=== PATIENT | female | born 1945 | race Caucasian/White ===

== ENCOUNTER 2020-11-11 18:51 | IRF | payer MEDICARE, SELFPAY ==
[2020-11-11 17:40] VITALS: BMI 25.3
[2020-11-11 18:29] VITALS: BP 179/55; PULSE 75; RESP 20; TEMP 36.3; O2SAT 100
[2020-11-11 20:38] LABS: Glucose Point of Care 132 mg/dl (65-105)
--- NOTE | 2020-11-11 21:38 | ADMGEN ---
This patient, Hodan Marroquin, was admitted to [facility] Room 223-02. Patient/family oriented to hospital policies and general routines including ID bracelet, bed and alarms, visiting hours, pain management, procedures, bathroom and other care routines, personal items, smoking policy, room service/diet, and visiting hours. Information on how to activate the Rapid Response Team has been discussed. Patient/Family are encouraged to report perceived risks to care and to ask questions if they do not understand what they are told or what they should do.
[2020-11-11] MEDS: PREGABALIN (*CRX) 75 MG CAPSULE PO (21:47)
[2020-11-11] MEDS: CYCLOBENZAPRINE HCL 5 MG TABLET PO (21:47)
[2020-11-11] MEDS: busPIRone HCL 10 MG TABLET PO (21:47)
[2020-11-11] MEDS: dilTIAZem HCL 30 MG TABLET PO (21:47)
[2020-11-11] MEDS: DICYCLOMINE HCL 10 MG CAPSULE PO (21:47)
[2020-11-11] MEDS: GABAPENTIN 300 MG CAPSULE PO (21:47)
[2020-11-11] MEDS: DONEPEZIL HCL 10 MG TABLET PO (21:47)
[2020-11-11 22:00] VITALS: BP 168/44; PULSE 79; RESP 16; TEMP 36.6; O2SAT 98
[2020-11-11] MEDS: TOPIRAMATE 25 MG TABLET 50 MG PO (22:16)
[2020-11-11] MEDS: ACETAMINOPHEN 500 MG TABLET 1000 MG PO (22:34)
[2020-11-12] MEDS: oxyCODONE HCL (*CRX) 5 MG TAB IR PO ×2 (02:30→09:16)
[2020-11-12] MEDS: busPIRone HCL 10 MG TABLET PO ×3 (05:20→21:08)
[2020-11-12] MEDS: dilTIAZem HCL 30 MG TABLET PO ×3 (05:20→21:08)
[2020-11-12] MEDS: DICYCLOMINE HCL 10 MG CAPSULE PO ×4 (05:30→21:08)
[2020-11-12 05:50] LABS: Basophils Percent Auto 0.5 % (0.2-1.2); Eosinophils Absolute Auto 0.4 K/mm3 (0-0.3); Eosinophils Percent Auto 5.5 % (0-4.4); Immature Granulocyte Absolute 0.03 K/mm3 (0.00-0.031); Immature Granulocyte Percent A 0.5 % (0-0.5); Lymphocytes Absolute Auto 2.84 K/mm3 (0.9-3.2); Lymphocytes Percent Auto 43.4 % (18.3-44.2); Mean Corpuscular HGB Conc 32.4 g/dl (32-36); Mean Corpuscular Hemoglobin 32.4 pg (26-34); Mean Platelet Volume 10.4 fl (7.4-10.4); Monocytes Absolute Auto 0.6 K/mm3 (0.1-0.6); Monocytes Percent Auto 9.3 % (2.6-8.5); Neutrophils Absolute Auto 2.7 K/mm3 (1.3-6.7); Neutrophils Percent Auto 40.8 % (45.5-73.1); Platelet Count Result 193 k/mm3 (150-375); Red Cell Distribution Width 13.6 % (11.5-14.5); White Blood Count 6.6 K/mm3 (4.5-10.0)
[2020-11-12 05:54] LABS: Alanine Aminotransferase 42 U/L (4-35); Alkaline Phosphatase 146 U/L (38-126); Anion Gap 9 mmol/L (8-16); Aspartate Amino Transferase 31 U/L (14-36); Bilirubin,Total 0.4 mg/dL (0.2-1.3); Blood Urea Nitrogen 35 mg/dL (7-17); Calcium 9.4 mg/dL (8.4-10.2); Carbon Dioxide 22 mmol/L (22-30); Chloride 109 mmol/L (98-107); Estimated CRCL calculation 35 ml/min; Estimated Glomerular Filt Rate 44; Glucose 120 mg/dL (65-105); Potassium 3.9 mmol/L (3.4-5.0); Sodium 140 mmol/L (137-145)
[2020-11-12 06:00] VITALS: BP 166/50; PULSE 79; RESP 18; TEMP 36.6; O2SAT 93
[2020-11-12 06:23] LABS: Glucose Point of Care 141 mg/dl (65-105)
[2020-11-12] MEDS: ASCORBIC ACID 500 MG TABLET PO (09:14)
[2020-11-12] MEDS: ASPIRIN 81 MG CHEWABLE TABLET PO (09:14)
[2020-11-12] MEDS: MEMANTINE HCL XR 28 MG CAP PO (09:14)
[2020-11-12] MEDS: THERAPEUTIC MULTIVITAMINS/MINERALS TAB (*BKC) 1 TABLET PO (09:14)
[2020-11-12] MEDS: ACETAMINOPHEN 500 MG TABLET 1000 MG PO ×3 (09:14→21:11)
[2020-11-12] MEDS: FERROUS SULFATE DRIED 142 MG TABCR PO (09:14)
[2020-11-12] MEDS: FUROSEMIDE 20 MG TABLET PO (09:14)
[2020-11-12] MEDS: PANTOPRAZOLE 40 MG TABLET PO (09:15)
[2020-11-12] MEDS: SERTRALINE HCL 50 MG TABLET 100 MG PO (09:15)
[2020-11-12] MEDS: SENNA/DOCUSATE SODIUM TABLET 1 TAB PO (09:15)
[2020-11-12] MEDS: ATORVASTATIN 40 MG TABLET 80 MG PO (09:15)
[2020-11-12] MEDS: APIXABAN 5 MG TABLET PO ×2 (09:15→16:59)
[2020-11-12] MEDS: TOPIRAMATE 25 MG TABLET 50 MG PO ×2 (09:16→21:08)
[2020-11-12] MEDS: PREGABALIN (*CRX) 75 MG CAPSULE PO ×2 (09:16→21:13)
--- NOTE | 2020-11-12 10:21 | WPDREHABHP ---
H&P: HPI History of Present Illness Date/Time: 11/12/20 10:21 Chief Complaint: HISTORY OF PRESENT ILLNESS: The patient's primary rehab impairment category is 0 9 orthopedic other The etiologic diagnosis is left-sided rib fractures 6 through 9 I saw this patient [id number] on 11/12/2020 The patient is a 75-year-old female with past medical history of anxiety, bilateral carotid artery stenosis, Alzheimer's disease, CHF, COPD, CAD, lumbar degenerative disc disease, diastolic dysfunction, hypertension, hyperlipidemia, essential tremors, gastric ulcer, GERD, kidney stones, osteoarthritis, peptic ulcerations, peripheral neuropathy, seizure disorder, sick sinus syndrome, CVA, tension headaches, history of DVT who suffered a mechanical fall. Patient was seen in a local hospital and then transferred to [facility] due to her multiple comorbidities. Patient was in ICU. Workup: Left shoulder x-ray revealed a small calcific density projecting above there acromion on the oblique view of the shoulder. Probably due to past injury. CT of the head and spine showed no acute intracranial abnormality. No evidence of acute fracture of the cervical spine. Chest x-ray revealed hazy opacification of the left lung base may relate to atelectasis or small layering left pleural effusion. Bilateral lower extremity Dopplers were negative. Patient was discovered to have a left rib fractures 6 through 9. Hospital course patient required epidural on 11/06/2020 and discontinued on 11/10/2020. Patient resumed her gabapentin and Lyrica which were home meds. Patient is on Flexeril and acetaminophen. Patient was prophylaxed on heparin for DVT prophylaxis. Her Eliquis was initially held until discharge. Patient will not require DVT prophylaxis since Eliquis will be restarting. Therapy was initiated at the acute care facility and the patient transferred to us from [facility] on 11/11/2025 FALLS OR SURGERIES: patient reports 2 or more falls in the past year with injury. Patient has sustained a left rib fracture during her most recent fall. Patient has had no major surgery last 100 days PRIOR LEVEL OF FUNCTION: Eating was [INDEPENDENT] Oral Care was [INDEPENDENT] Toileting Hygiene was [INDEPENDENT] Shower/Bathing was [INDEPENDENT] Upper Body Dressing was [INDEPENDENT] Lower Body Dressing was [INDEPENDENT] Donning/[place] Footwear was [INDEPENDENT] Rolling Left and Right was [INDEPENDENT] Sit to Lying was [INDEPENDENT] Lying to Sitting was [INDEPENDENT] Sit to Stand was [INDEPENDENT] Bed to Chair Transfers was [INDEPENDENT] Toilet Transfers was [INDEPENDENT] Walking was [INDEPENDENT] [>500 feet] with [NO DEVICE] Wheelchair Mobility was [NOT APPLICABLE PRIOR TO ADMISSION] Stairs were [INDEPENDENT] CURRENT LEVEL OF FUNCTION: Eating was [SET UP ONLY] Oral Care was [ partial to mod assist Toileting Hygiene was partial to mod assist Shower/Bathing was partial to mod assist Upper Body Dressing was partial to mod assist Lower Body Dressing was partial to mod assist Donning/[place] Footwear was partial to mod assist Rolling Left and Right was partial to mod assist Sit to Lying was partial to mod assist Lying to Sitting was partial to mod assist Sit to Stand was partial to mod assist Bed to Chair Transfers were partial to mod assist Toilet Transfers were partial to mod assist Walking was 15 ft with a roller walker and partial to mod assist Wheelchair Mobility was not tested Stairs were not tested GOALS: Our therapists will evaluate the patient and establish the goals. However, upon pre-admission screening, the expected goals were to be [INDEPENDENT] with self-care, [INDEPENDENT] with transfers, and [INDEPENDENT] with functional mobility so that the patient can return home. ESTIMATED LENGTH OF STAY: 7-10 days] POTENTIAL BARRIERS TO DISCHARGE: [Family needs training.] [Severity of condition.] [ ACTIVE CO-MORBIDITIES PRESENT
[2020-11-12 14:00] VITALS: BP 143/51; PULSE 89; RESP 18; TEMP 36.4; O2SAT 99
[2020-11-12 20:00] VITALS: PULSE 87; RESP 18; O2SAT 95
[2020-11-12] MEDS: GABAPENTIN 300 MG CAPSULE PO (21:08)
[2020-11-12] MEDS: FAMOTIDINE 10 MG TABLET PO (21:08)
[2020-11-12] MEDS: DONEPEZIL HCL 10 MG TABLET PO (21:15)
[2020-11-12] MEDS: CYCLOBENZAPRINE HCL 5 MG TABLET PO (21:16)
[2020-11-12 21:58] VITALS: BP 172/54; PULSE 87; RESP 18; TEMP 36.4; O2SAT 95
[2020-11-13] MEDS: oxyCODONE HCL (*CRX) 5 MG TAB IR PO (02:04)
[2020-11-13] MEDS: ALPRAZolam (*CRX) 0.25 MG TABLET PO (03:13)
[2020-11-13] MEDS: busPIRone HCL 10 MG TABLET PO ×3 (05:07→21:26)
[2020-11-13] MEDS: dilTIAZem HCL 30 MG TABLET PO ×3 (05:07→21:26)
[2020-11-13 06:00] VITALS: BP 176/64; PULSE 88; RESP 18; TEMP 36.1; O2SAT 93
[2020-11-13] MEDS: DICYCLOMINE HCL 10 MG CAPSULE PO ×4 (06:24→20:34)
[2020-11-13 06:27] LABS: Glucose Point of Care 153 mg/dl (65-105)
--- NOTE | 2020-11-13 08:25 | WPDNEURORHBP ---
Subjective Date/time seen: 11/13/20 08:25 Interval history: The etiologic diagnosis is left-sided rib fractures 6 through 9 The patient is a 75-year-old female with past medical history of anxiety, bilateral carotid artery stenosis, Alzheimer's disease, CHF, COPD, CAD, lumbar degenerative disc disease, diastolic dysfunction, hypertension, hyperlipidemia, essential tremors, gastric ulcer, GERD, kidney stones, osteoarthritis, peptic ulcerations, peripheral neuropathy, seizure disorder, sick sinus syndrome, CVA, tension headaches, history of DVT who suffered a mechanical fall. Patient was seen in a local hospital and then transferred to [facility] due to her multiple comorbidities. Patient was in ICU. Workup: Left shoulder x-ray revealed a small calcific density projecting above there acromion on the oblique view of the shoulder. Probably due to past injury. CT of the head and spine showed no acute intracranial abnormality. No evidence of acute fracture of the cervical spine. Chest x-ray revealed hazy opacification of the left lung base may relate to atelectasis or small layering left pleural effusion. Bilateral lower extremity Dopplers were negative. Patient was discovered to have a left rib fractures 6 through 9. Hospital course patient required epidural on 11/06/2020 and discontinued on 11/10/2020. Patient resumed her gabapentin and Lyrica which were home meds. Patient is on Flexeril and acetaminophen. Patient was prophylaxed on heparin for DVT prophylaxis. Her Eliquis was initially held until discharge. Patient will not require DVT prophylaxis since Eliquis will be restarting. Therapy was initiated at [facility] patient was transferred on 11/11/2020 11/13/2020 patient complains of left rib pain that she contributes to lifting 1 lb weights to the left upper extremity. Examiner spoke to therapist to provide relief and to perform no further strengthening on the left side. Lidoderm patch will be added to the rib fractures. Functional Status Ambulation Ability Ability to Ambulate 10 Feet: Standby Assistance Ability to Ambulate 50 Feet With 2 Turns: Contact Guard Ambulation Assistive Devices: Walker, Rollator Transfers Ability Ability to Transfer In/Out of Chair: Standby Assistance Exam Narrative: Exam Narrative: Patient is in no acute distress. Head is normocephalic. Glasses are noted. Speech is fluent. Patient wears bilateral hearing aids. Patient demonstrates hard of hearing. Speech is fluent. Heart rate rhythm regular. Lungs are clear. Abdomen is soft nontender bilateral lower extremity strength are 4-5 right lower extremity strength is 4/5 left is centrally 4- out of 5. Bruising is noted to the lateral flank. Tenderness is noted over ribs. Patient is alert and oriented x4. Objective Data Vital Signs Vital Signs: Vital Signs - 24 hr 11/12/20 14:00 11/12/20 20:00 11/12/20 21:58 Temperature 36.4 C 36.4 C L Pulse Rate 89 87 87 Respiratory Rate 18 18 18 Blood Pressure 143/51 H 172/54 H Pulse Oximetry 99 95 95 11/13/20 06:00 Temperature 36.1 C L Pulse Rate 88 Respiratory Rate 18 Blood Pressure 176/64 H Pulse Oximetry 93 Intake/Output Intake/Output: Intake & Output 11/10/20 11/11/20 11/12/20 11/13/20 23:59 23:59 23:59 23:59 Intake Total 240 720 Balance 240 720 Meds/Results Medications: Active Medications Generic Name Dose Route Start Last Admin Trade Name Freq PRN Reason Stop Dose Admin Acetaminophen 1,000 mg 11/12/20 08:00 11/12/20 13:57 Acetaminophen 500 Mg Tablet PO 1,000 mg BID@0800,1300 DRAKE Administration Acetaminophen 1,000 mg 11/11/20 22:22 11/12/20 21:11 Acetaminophen 500 Mg Tablet PO 1,000 mg Q6H PRN Administration Mild Pain (1-3) or Fever Albuterol 1 puff 11/11/20 20:29 Albuterol Sulfate (*Sp) Aerosol 1 Puff INHALATION QID PRN Shortness Of Breath Or Wheezing Alprazolam 0.25 mg 11/11/20 20:29 06
[2020-11-13] MEDS: TOPIRAMATE 25 MG TABLET 50 MG PO ×2 (09:29→20:35)
[2020-11-13] MEDS: APIXABAN 5 MG TABLET PO ×2 (09:29→20:34)
[2020-11-13] MEDS: PREGABALIN (*CRX) 75 MG CAPSULE PO ×2 (09:29→20:37)
[2020-11-13] MEDS: ACETAMINOPHEN 500 MG TABLET 1000 MG PO ×3 (09:29→19:39)
[2020-11-13] MEDS: SERTRALINE HCL 50 MG TABLET 100 MG PO (09:30)
[2020-11-13] MEDS: SENNA/DOCUSATE SODIUM TABLET 1 TAB PO (09:30)
[2020-11-13] MEDS: ATORVASTATIN 40 MG TABLET 80 MG PO (09:30)
[2020-11-13] MEDS: THERAPEUTIC MULTIVITAMINS/MINERALS TAB (*BKC) 1 TABLET PO (09:30)
[2020-11-13] MEDS: FERROUS SULFATE DRIED 142 MG TABCR PO (09:30)
[2020-11-13] MEDS: ASPIRIN 81 MG CHEWABLE TABLET PO (09:30)
[2020-11-13] MEDS: FUROSEMIDE 20 MG TABLET PO (09:31)
[2020-11-13] MEDS: FAMOTIDINE 10 MG TABLET PO ×2 (09:31→20:35)
[2020-11-13] MEDS: ASCORBIC ACID 500 MG TABLET PO (09:31)
[2020-11-13] MEDS: MEMANTINE HCL XR 28 MG CAP PO (09:31)
[2020-11-13] MEDS: LIDOCAINE 5% PATCH 1 PATCH TRANSDERM (09:32)
[2020-11-13] MEDS: PANTOPRAZOLE 40 MG TABLET PO (12:10)
[2020-11-13 13:27] VITALS: BP 163/54; PULSE 96; RESP 18; TEMP 35.9; O2SAT 100
--- NOTE | 2020-11-13 14:39 | PM.IMCN ---
Assessment and Plan Assessment and plan (1) Left rib fracture: Code(s): S22.32XA - Fracture of one rib, left side, initial encounter for closed fracture Status: Acute Assessment and Plan: Hodan Marroquin is a 75 year old female status post mechanical fall with bilateral rib fractures patient is here in [facility] for rehab and be been consult for medical management as patient has several comorbidities nxiety, bilateral carotid artery stenosis, Alzheimer's disease, CHF, COPD, CAD, lumbar degenerative disc disease, diastolic dysfunction, hypertension, hyperlipidemia, essential tremors, gastric ulcer, GERD, kidney stones, osteoarthritis, peptic ulcerations, peripheral neuropathy, seizure disorder, sick sinus syndrome, CVA, tension headaches, history of DVT. patient has been in the rehab center for 2 days and been participating in physical therapy her pain is controlled with Lidoderm patches, cyclobenzaprine, and acetaminophen, we thank you for consulting us for medical management, will continue to monitor patient with you, if you have any question please feel free to call us. (2) Seizure disorder: Code(s): G40.909 - Epilepsy, unspecified, not intractable, without status epilepticus Status: Acute Assessment and Plan: continue home regimen (3) Hypertension: Code(s): I10 - Essential (primary) hypertension Status: Acute Assessment and Plan: continue home regimen (4) Diastolic dysfunction: Code(s): I51.89 - Other ill-defined heart diseases Status: Acute Assessment and Plan: patient appears euvolemic continue home regimen (5) CHF (congestive heart failure): Code(s): I50.9 - Heart failure, unspecified Status: Acute Assessment and Plan: plan is above (6) COPD (chronic obstructive pulmonary disease): Code(s): J44.9 - Chronic obstructive pulmonary disease, unspecified Status: Acute Assessment and Plan: patient does not have any symptoms of exacerbated continue home regimen with inhalers. HPI Data of Consult Consult date: 11/13/20 Requesting Physician: Lisa Kothari DO Primary Care Provider: Cornell Simmons, Consult Narrative Narrative: Hodan Marroquin is a 75 year old female status post mechanical fall with bilateral rib fractures patient is here in [facility] for rehab and be been consult for medical management as patient has several comorbidities nxiety, bilateral carotid artery stenosis, Alzheimer's disease, CHF, COPD, CAD, lumbar degenerative disc disease, diastolic dysfunction, hypertension, hyperlipidemia, essential tremors, gastric ulcer, GERD, kidney stones, osteoarthritis, peptic ulcerations, peripheral neuropathy, seizure disorder, sick sinus syndrome, CVA, tension headaches, history of DVT. patient has been in the rehab center for 2 days and been participating in physical therapy her pain is controlled with Lidoderm patches, cyclobenzaprine, and acetaminophen, we thank you for consulting us for medical management, will continue to monitor patient with you, if you have any question please feel free to call us. Review of Systems Review of Systems: All systems reviewed & are unremarkable except as noted in HPI and below PMFSH Past Medical History Medical History (Updated 11/12/20 @ 11:14 by Lisa Kothari DO) Alzheimers disease Anxiety Carotid artery stenosis CHF (congestive heart failure) Cholecystectomy planned COPD (chronic obstructive pulmonary disease) Depression Diastolic dysfunction Essential tremor GERD (gastroesophageal reflux disease) Hyperlipidemia Hypertension Irritable bowel syndrome Lumbar degenerative disc disease Osteoarthritis Pacemaker Peptic ulcer disease Peripheral neuropathy Seizure disorder Sick sinus syndrome Surgical History Surgical History (Updated 11/12/20 @ 11:14 by Lisa Kothari DO) History of appendectomy History of total abdominal hysterectomy and bi
[2020-11-13] MEDS: GABAPENTIN 300 MG CAPSULE PO (20:34)
[2020-11-13] MEDS: CYCLOBENZAPRINE HCL 5 MG TABLET PO (20:34)
[2020-11-13] MEDS: DONEPEZIL HCL 10 MG TABLET PO (20:35)
[2020-11-13] MEDS: MELATONIN 5 MG TABLET PO (20:46)
[2020-11-13 22:00] VITALS: BP 176/61; PULSE 82; RESP 18; TEMP 36.1; O2SAT 96
[2020-11-14] MEDS: ACETAMINOPHEN 500 MG TABLET 1000 MG PO ×4 (02:31→20:26)
[2020-11-14] MEDS: oxyCODONE HCL (*CRX) 5 MG TAB IR PO (04:08)
[2020-11-14] MEDS: dilTIAZem HCL 30 MG TABLET PO ×3 (05:39→20:28)
[2020-11-14] MEDS: busPIRone HCL 10 MG TABLET PO ×3 (05:39→20:26)
[2020-11-14] MEDS: DICYCLOMINE HCL 10 MG CAPSULE PO ×4 (05:39→20:24)
[2020-11-14 06:00] VITALS: BP 176/56; PULSE 89; RESP 18; TEMP 36.1; O2SAT 94
[2020-11-14 06:28] LABS: Glucose Point of Care 162 mg/dl (65-105)
[2020-11-14] MEDS: ASPIRIN 81 MG CHEWABLE TABLET PO (09:01)
[2020-11-14] MEDS: SERTRALINE HCL 50 MG TABLET 100 MG PO (09:01)
[2020-11-14] MEDS: FERROUS SULFATE DRIED 142 MG TABCR PO (09:02)
[2020-11-14] MEDS: FUROSEMIDE 20 MG TABLET PO (09:02)
[2020-11-14] MEDS: SENNA/DOCUSATE SODIUM TABLET 1 TAB PO (09:02)
[2020-11-14] MEDS: THERAPEUTIC MULTIVITAMINS/MINERALS TAB (*BKC) 1 TABLET PO (09:02)
[2020-11-14] MEDS: ATORVASTATIN 40 MG TABLET 80 MG PO (09:02)
[2020-11-14] MEDS: TOPIRAMATE 25 MG TABLET 50 MG PO ×2 (09:02→20:25)
[2020-11-14] MEDS: ASCORBIC ACID 500 MG TABLET PO (09:02)
[2020-11-14] MEDS: APIXABAN 5 MG TABLET PO ×2 (09:02→20:24)
[2020-11-14] MEDS: FAMOTIDINE 10 MG TABLET PO ×2 (09:03→20:27)
[2020-11-14] MEDS: MEMANTINE HCL XR 28 MG CAP PO (09:03)
[2020-11-14] MEDS: LIDOCAINE 5% PATCH 1 PATCH TRANSDERM (09:03)
[2020-11-14] MEDS: PREGABALIN (*CRX) 75 MG CAPSULE PO ×2 (09:04→20:26)
--- NOTE | 2020-11-14 10:31 | RPD ---
INDIVIDUALIZED PLAN OF CARE FOR Hodan Marroquin Brief Synthesis of Pre-Admission Screen, Post-Admission Evaluation and Therapy Evaluations: The patient presents to rehab with left sided rib fractures 6-9 secondary to a fall. Comorbidities include acute pain, Alzheimer's, headaches, anxiety, depression, HLD, HTN, left 6-9 rib fractures, JEREMIAS, near syncopal episode, DMII, HX of vertebral artery dissection, UTI, atrial fibrillation, congestive heart failure, COPD, coronary artery disease, GERD, essential tremor, and sick sinus syndrome. The complexity of the patient's medical management, nursing, and therapy needs require an inpatient rehab hospital stay with a physician-led interdisciplinary team approach. The patient?s needs will be best met in an intensive program vs. at a lower level of care. The patient requires physician services for medical oversight, management of present comorbidities (urinary tract infection, acute kidney injury, diabetes mellitus with hyperglycemia, atrial fibrillation, hypertension, congestive heart failure), and pain management. The patient requires nursing services for anticoagulation therapy, diabetes training, DVT prophylactics, IV administration, infection protection, medication management and education, pressure relief, and wound care. Deficits include:ADLs, Balance, Endurance, Family Training/Education, Mobility, Pain Management, ROM, Safety, Strength, Transfers Manager Finance/Case Management for: Discharge Planning and Patient/Family Counseling Physical Therapy: 5 days per week for 90 minutes. Treatments may include: Therapeutic Exercise, Gait Training, Neuromuscular Re-education, Transfer Training, Community Reintegration, Bed Mobility, Patient/Family Education, Wheelchair Mobility Group Therapy/Concurrent Therapy Rationales: -Improve attention span during functional activities in a distracted environment. -Enhance problem solving and/or adequate judgment skills during functional activities in a distracted environment. -Promote increased safety awareness in a distracted environment to reduce fall risk with functional tasks, transfers, and ambulation to allow a more safe, self-sufficient return to the home environment. -Improve dynamic balance skills to promote safety and independence with functional activities in a distracted environment for maximum gain. Occupational Therapy: 5 days per week for 90 minutes. Treatments may include: Therapeutic Exercise, Therapeutic Activity, Cognitive Training, Self-Care Transfer Training, Community Reintegration, Home Management, Patient/Family Education, Wheelchair Mobility Training, Energy Conservation Training Group Therapy/Concurrent Therapy Rationales: -Allow therapist to observe and teach generalization and carry-over of skills learned in individual therapy. -Enhance problem solving and sequencing skills during therapeutic activities in a distracted environment. -Promote increased safety awareness in a realistic setting to reduce fall risk with functional tasks due to visual and verbal distractions. -Increase functional level with ADLs, ADL transfers and use of adaptive equipment through therapeutic activities with others while promoting safety to allow a more safe, self-sufficient return home. Medical Prognosis: Good Anticipated Length of Stay: 7 days Rehab Goals: Eating Goal: 06-Independent Oral Hygiene Goal: 06-Independent Toileting Hygiene Goal: 06-Independent Shower/Bathe Self Goal: 06-Independent Upper Body Dressing Goal: 06-Independent Lower Body Dressing Goal: 06-Independent Putting On/Taking Off Footwear Goal: 06-Independent Rolling Left and Right Goal: 06-Independent Sit to Lying Goal: 06-Independent Lying to Sitting on Side of Bed Goal: 06-Independent Sit to Stand Goal: 06-Independent Chair/[id number] Transfer Goal: 06-Independent Toilet Transfer Goal: 06-Independent Car Transfer Goal: 06-Independent Walk 10' Goal: 06-Independent Walk 50' with Two Turns Goal: 06-I
--- NOTE | 2020-11-14 11:07 | WPDNEURORHBP ---
Subjective Date/time seen: 11/14/20 11:07 Interval history: The etiologic diagnosis is left-sided rib fractures 6 through 9 The patient is a 75-year-old female with past medical history of anxiety, bilateral carotid artery stenosis, Alzheimer's disease, CHF, COPD, CAD, lumbar degenerative disc disease, diastolic dysfunction, hypertension, hyperlipidemia, essential tremors, gastric ulcer, GERD, kidney stones, osteoarthritis, peptic ulcerations, peripheral neuropathy, seizure disorder, sick sinus syndrome, CVA, tension headaches, history of DVT who suffered a mechanical fall. Patient was seen in a local hospital and then transferred to [facility] due to her multiple comorbidities. Patient was in ICU. Workup: Left shoulder x-ray revealed a small calcific density projecting above there acromion on the oblique view of the shoulder. Probably due to past injury. CT of the head and spine showed no acute intracranial abnormality. No evidence of acute fracture of the cervical spine. Chest x-ray revealed hazy opacification of the left lung base may relate to atelectasis or small layering left pleural effusion. Bilateral lower extremity Dopplers were negative. Patient was discovered to have a left rib fractures 6 through 9. Hospital course patient required epidural on 11/06/2020 and discontinued on 11/10/2020. Patient resumed her gabapentin and Lyrica which were home meds. Patient is on Flexeril and acetaminophen. Patient was prophylaxed on heparin for DVT prophylaxis. Her Eliquis was initially held until discharge. Patient will not require DVT prophylaxis since Eliquis will be restarting. Therapy was initiated at [facility] patient was transferred on 11/11/2020 11/13/2020 patient complains of left rib pain that she contributes to lifting 1 lb weights to the left upper extremity. Examiner spoke to therapist to provide relief and to perform no further strengthening on the left side. Lidoderm patch will be added to the rib fractures. 11/14/20 Patient had questions regarding OSH CXR. Patient denies SOB. Pain is markedly improved. Review of Systems Constitutional: Constitutional: Reports no additional constitutional complaints ENT: Reports system reviewed and no additional complaints, except as documented Cardiovascular: Cardiovascular: Reports no additional cardiovascular complaints Respiratory: Respiratory: Reports no additional respiratory complaints Musculoskeletal: Musculoskeletal: Reports myalgias Psychiatric: Psychiatric: Reports anxiety and Reports depression Functional Status Ambulation Ability Ability to Ambulate 10 Feet: Standby Assistance Ability to Ambulate 50 Feet With 2 Turns: Standby Assistance Ambulation Assistive Devices: Walker, Rollator Transfers Ability Ability to Transfer In/Out of Chair: Standby Assistance Exam Narrative: Exam Narrative: Patient is in no acute distress. Head is normocephalic. Glasses are noted. Speech is fluent. Patient wears bilateral hearing aids. Speech is fluent. Heart rate rhythm regular. Lungs are clear. Abdomen is soft nontender Bilateral lower extremity strength are 4-5 right lower extremity strength is 4/5 left is centrally 4- out of 5. Bruising is noted to the lateral flank. Tenderness is noted over ribs. Patient is alert and oriented x4. Objective Data Vital Signs Vital Signs: Vital Signs - 24 hr 11/13/20 13:27 11/13/20 22:00 11/14/20 06:00 Temperature 35.9 C L 36.1 C L 36.1 C L Pulse Rate 96 82 89 Respiratory Rate 18 18 18 Blood Pressure 163/54 H 176/61 H 176/56 H Pulse Oximetry 100 96 94 Intake/Output Intake/Output: Intake & Output 11/11/20 11/12/20 11/13/20 11/14/20 23:59 23:59 23:59 23:59 Intake Total 240 720 720 480 Balance 240 720 720 480 Meds/Results Medications: Active Medications Generic Name Dose Route Start Last Admin Trade Name Freq PRN Reason Stop Dose Admin Acetaminophen 1,000 mg 11/12/20 08:00 10/19
[2020-11-14] MEDS: PANTOPRAZOLE 40 MG TABLET PO (12:21)
[2020-11-14 13:19] VITALS: BMI 25.3
[2020-11-14 14:00] VITALS: BP 151/45; PULSE 81; RESP 16; TEMP 36.1; O2SAT 100
[2020-11-14 20:00] VITALS: PULSE 90; RESP 18; O2SAT 95
[2020-11-14] MEDS: GABAPENTIN 300 MG CAPSULE PO (20:24)
[2020-11-14] MEDS: CYCLOBENZAPRINE HCL 5 MG TABLET PO (20:24)
[2020-11-14] MEDS: MELATONIN 5 MG TABLET PO (20:25)
[2020-11-14] MEDS: DONEPEZIL HCL 10 MG TABLET PO (20:25)
[2020-11-14 22:00] VITALS: BP 148/65; PULSE 90; RESP 18; TEMP 36.4; O2SAT 95
[2020-11-15] MEDS: ACETAMINOPHEN 500 MG TABLET 1000 MG PO ×4 (02:45→18:52)
[2020-11-15] MEDS: dilTIAZem HCL 30 MG TABLET PO ×3 (05:36→22:07)
[2020-11-15] MEDS: busPIRone HCL 10 MG TABLET PO ×3 (05:36→22:08)
[2020-11-15] MEDS: DICYCLOMINE HCL 10 MG CAPSULE PO ×4 (05:36→22:06)
[2020-11-15 06:00] VITALS: BP 184/65; PULSE 95; RESP 18; TEMP 36.4; O2SAT 97
[2020-11-15 06:51] LABS: Glucose Point of Care 130 mg/dl (65-105)
[2020-11-15] MEDS: SERTRALINE HCL 50 MG TABLET 100 MG PO (08:48)
[2020-11-15] MEDS: ASPIRIN 81 MG CHEWABLE TABLET PO (08:48)
[2020-11-15] MEDS: ATORVASTATIN 40 MG TABLET 80 MG PO (08:48)
[2020-11-15] MEDS: APIXABAN 5 MG TABLET PO ×2 (08:48→22:07)
[2020-11-15] MEDS: ASCORBIC ACID 500 MG TABLET PO (08:49)
[2020-11-15] MEDS: FERROUS SULFATE DRIED 142 MG TABCR PO (08:49)
[2020-11-15] MEDS: TOPIRAMATE 25 MG TABLET 50 MG PO ×2 (08:49→22:06)
[2020-11-15] MEDS: SENNA/DOCUSATE SODIUM TABLET 1 TAB PO (08:50)
[2020-11-15] MEDS: FUROSEMIDE 20 MG TABLET PO (08:50)
[2020-11-15] MEDS: MEMANTINE HCL XR 28 MG CAP PO (08:50)
[2020-11-15] MEDS: THERAPEUTIC MULTIVITAMINS/MINERALS TAB (*BKC) 1 TABLET PO (08:51)
[2020-11-15] MEDS: FAMOTIDINE 10 MG TABLET PO ×2 (08:51→22:10)
[2020-11-15] MEDS: LIDOCAINE 5% PATCH 1 PATCH TRANSDERM (08:51)
[2020-11-15] MEDS: PREGABALIN (*CRX) 75 MG CAPSULE PO ×2 (08:53→22:12)
[2020-11-15 12:10] LABS: Glucose Point of Care 107 mg/dl (65-105)
[2020-11-15] MEDS: PANTOPRAZOLE 40 MG TABLET PO (12:31)
[2020-11-15 14:00] VITALS: BP 170/55; PULSE 84; RESP 14; TEMP 36.3; O2SAT 99
--- NOTE | 2020-11-15 14:13 | WPDNEURORHBP ---
Subjective Date/time seen: 11/15/20 14:13 Interval history: The etiologic diagnosis is left-sided rib fractures 6 through 9 The patient is a 75-year-old female with past medical history of anxiety, bilateral carotid artery stenosis, Alzheimer's disease, CHF, COPD, CAD, lumbar degenerative disc disease, diastolic dysfunction, hypertension, hyperlipidemia, essential tremors, gastric ulcer, GERD, kidney stones, osteoarthritis, peptic ulcerations, peripheral neuropathy, seizure disorder, sick sinus syndrome, CVA, tension headaches, history of DVT who suffered a mechanical fall. Patient was seen in a local hospital and then transferred to [facility] due to her multiple comorbidities. Patient was in ICU. Workup: Left shoulder x-ray revealed a small calcific density projecting above there acromion on the oblique view of the shoulder. Probably due to past injury. CT of the head and spine showed no acute intracranial abnormality. No evidence of acute fracture of the cervical spine. Chest x-ray revealed hazy opacification of the left lung base may relate to atelectasis or small layering left pleural effusion. Bilateral lower extremity Dopplers were negative. Patient was discovered to have a left rib fractures 6 through 9. Hospital course patient required epidural on 11/06/2020 and discontinued on 11/10/2020. Patient resumed her gabapentin and Lyrica which were home meds. Patient is on Flexeril and acetaminophen. Patient was prophylaxed on heparin for DVT prophylaxis. Her Eliquis was initially held until discharge. Patient will not require DVT prophylaxis since Eliquis will be restarting. Therapy was initiated at [facility] patient was transferred on 11/11/2020 11/13/2020 patient complains of left rib pain that she contributes to lifting 1 lb weights to the left upper extremity. Examiner spoke to therapist to provide relief and to perform no further strengthening on the left side. Lidoderm patch will be added to the rib fractures. 11/14/20 Patient had questions regarding OSH CXR. Patient denies SOB. Pain is markedly improved. 11/15/2020 patient denies any pain. Team Conference: Patient is continent of bowel and bladder. She has resumed her anticoagulation medicine Eliquis twice a day. Bruising is noted to the left flank. Patient is at standby to independent with bed mobility transfers and gait using a Rollator. Patient is at setup to standby assistance with ADLs. We are anticipate a discharge on Saturday were patient will be modified independent. Patient will not require any home health care needs PT or OT or DME. Patient is to go home with a Rollator. Patient will be given a home exercise program. Patient lives in assisted living facility and patient may require screening before returning back to her apartment. Review of Systems Constitutional: Constitutional: Reports no additional constitutional complaints Functional Status Ambulation Ability Ability to Ambulate 10 Feet: Independent Ability to Ambulate 50 Feet With 2 Turns: Independent Ability to Ambulate 150 Feet: Independent Ambulation Assistive Devices: Walker, Rollator Transfers Ability Ability to Transfer In/Out of Chair: Independent Exam Narrative: Exam Narrative: Patient is in no acute distress. Head is normocephalic. Glasses are noted. Speech is fluent. Patient wears bilateral hearing aids. Speech is fluent. Heart rate rhythm regular. Lungs are clear. Abdomen is soft nontender Bilateral lower extremity strength are 4-5 right lower extremity strength is 4/5 left is centrally 4- out of 5. Bruising is noted to the lateral flank. Tenderness is noted over ribs. Patient is alert and oriented x4. Endurance is better. Objective Data Vital Signs Vital Signs: Vital Signs - 24 hr 11/14/20 20:00 11/14/20 22:00 11/15/20 06:00 Temperature 36.4 C 36.4 C L Pulse Rate 90 90 95 Respiratory Rate 18 18 18 Blood Pressure 148/65 H 184/65 H Pulse Oxi
--- NOTE | 2020-11-15 16:42 | PM.IMPN ---
Progress Note: A&P Assessment and Plan (1) Left rib fracture: Code(s): S22.32XA - Fracture of one rib, left side, initial encounter for closed fracture Status: Acute Assessment and Plan: Hodan Marroquin is a 75 year old female status post mechanical fall with bilateral rib fractures patient is here in [facility] for rehab and be been consult for medical management as patient has several comorbidities nxiety, bilateral carotid artery stenosis, Alzheimer's disease, CHF, COPD, CAD, lumbar degenerative disc disease, diastolic dysfunction, hypertension, hyperlipidemia, essential tremors, gastric ulcer, GERD, kidney stones, osteoarthritis, peptic ulcerations, peripheral neuropathy, seizure disorder, sick sinus syndrome, CVA, tension headaches, history of DVT. undergoing physical therapy. her pain is controlled with Lidoderm patches, cyclobenzaprine, and acetaminophen, (2) Seizure disorder: Code(s): G40.909 - Epilepsy, unspecified, not intractable, without status epilepticus Status: Acute Assessment and Plan: continue home regimen (3) Hypertension: Code(s): I10 - Essential (primary) hypertension Status: Acute Assessment and Plan: continue home regimen She was on clonidine patch at home as he states blood pressure slightly high will restart this medication. (4) Diastolic dysfunction: Code(s): I51.89 - Other ill-defined heart diseases Status: Acute Assessment and Plan: patient appears euvolemic continue home regimen (5) CHF (congestive heart failure): Code(s): I50.9 - Heart failure, unspecified Status: Acute Assessment and Plan: plan is above (6) COPD (chronic obstructive pulmonary disease): Code(s): J44.9 - Chronic obstructive pulmonary disease, unspecified Status: Acute Assessment and Plan: patient does not have any symptoms of exacerbated continue home regimen with inhalers. Subjective Date/time seen: 11/15/20 16:42 Interval history: no overnight events. No new complaints. No chest pain shortness of breath. Pain is well controlled. Undergoing therapy. She states he was on clonidine patch at home prior to the admission. She was switched to clonidine oral while she was at [facility] as they did have patch in the hospital Review of Systems Review of Systems: All systems reviewed & are unremarkable except as noted in HPI and below Exam Narrative: Exam Narrative: elderly frail not in acute distress Patient is comfortable, NAD HEENT: eyes are clear and none icteric LUNGS:CTA no respiratory distress HEART: RR S1S2 ABD: BS+, Soft and nontender Lower extremities: no edema no cyanosis or clubbing SKIN: nonjaundiced Neuro: grossly intact. alert and oriented x3 Objective Data Vital Signs Vital Signs: Vital Signs - 24 hr 11/14/20 20:00 11/14/20 22:00 11/15/20 06:00 Temperature 97.6 F 97.5 F L Pulse Rate 90 90 95 Respiratory Rate 18 18 18 Blood Pressure 148/65 H 184/65 H Pulse Oximetry 95 95 97 11/15/20 14:00 Temperature 97.3 F L Pulse Rate 84 Respiratory Rate 14 Blood Pressure 170/55 H Pulse Oximetry 99 Intake/Output Intake/Output: Intake & Output 11/12/20 11/13/20 11/14/20 11/15/20 23:59 23:59 23:59 23:59 Intake Total 720 720 960 600 Balance 720 720 960 600 Meds/Results Medications: Active Medications Generic Name Dose Route Start Last Admin Trade Name Freq PRN Reason Stop Dose Admin Acetaminophen 1,000 mg 11/12/20 08:00 11/15/20 12:32 Acetaminophen 500 Mg Tablet PO 1,000 mg BID@0800,1300 DRAKE Administration Acetaminophen 1,000 mg 11/11/20 22:22 11/15/20 02:45 Acetaminophen 500 Mg Tablet PO 1,000 mg Q6H PRN Administration Mild Pain (1-3) or Fever Albuterol 1 puff 11/11/20 20:29 Albuterol Sulfate (*Sp) Aerosol 1 Puff INHALATION QID PRN Shortness Of Breath Or Wheezing Alprazolam 0.25 mg 11/11/20 20:29 11/13/20 03:13 Alprazol
[2020-11-15 22:00] VITALS: BP 189/62; PULSE 75; RESP 18; TEMP 36.7; O2SAT 100
[2020-11-15] MEDS: CYCLOBENZAPRINE HCL 5 MG TABLET PO (22:07)
[2020-11-15] MEDS: GABAPENTIN 300 MG CAPSULE PO (22:08)
[2020-11-15] MEDS: DONEPEZIL HCL 10 MG TABLET PO (22:08)
[2020-11-15 22:52] VITALS: BP 178/58; PULSE 85
[2020-11-15] MEDS: oxyCODONE HCL (*CRX) 5 MG TAB IR PO (23:25)
[2020-11-16] MEDS: MELATONIN 5 MG TABLET PO ×2 (00:39→21:05)
[2020-11-16] MEDS: ACETAMINOPHEN 500 MG TABLET 1000 MG PO ×4 (04:24→17:52)
[2020-11-16] MEDS: busPIRone HCL 10 MG TABLET PO ×3 (05:19→20:57)
[2020-11-16] MEDS: dilTIAZem HCL 30 MG TABLET PO ×3 (05:19→20:59)
[2020-11-16 05:51] VITALS: BP 151/52; PULSE 81; RESP 18; TEMP 36.5; O2SAT 96
[2020-11-16] MEDS: DICYCLOMINE HCL 10 MG CAPSULE PO ×4 (06:16→20:55)
[2020-11-16 06:27] LABS: Glucose Point of Care 127 mg/dl (65-105)
[2020-11-16] MEDS: ASCORBIC ACID 500 MG TABLET PO (09:52)
[2020-11-16] MEDS: ASPIRIN 81 MG CHEWABLE TABLET PO (09:52)
[2020-11-16] MEDS: APIXABAN 5 MG TABLET PO ×2 (09:52→20:57)
[2020-11-16] MEDS: ATORVASTATIN 40 MG TABLET 80 MG PO (09:52)
[2020-11-16] MEDS: SENNA/DOCUSATE SODIUM TABLET 1 TAB PO (09:53)
[2020-11-16] MEDS: cloNIDine 0.2 MG/24 HR PATCH 1 PATCH TRANSDERM (09:53)
[2020-11-16] MEDS: FAMOTIDINE 10 MG TABLET PO ×2 (09:53→21:02)
[2020-11-16] MEDS: FERROUS SULFATE DRIED 142 MG TABCR PO (09:54)
[2020-11-16] MEDS: MEMANTINE HCL XR 28 MG CAP PO (09:54)
[2020-11-16] MEDS: FUROSEMIDE 20 MG TABLET PO (09:54)
[2020-11-16] MEDS: LIDOCAINE 5% PATCH 1 PATCH TRANSDERM (09:54)
[2020-11-16] MEDS: SERTRALINE HCL 50 MG TABLET 100 MG PO (09:55)
[2020-11-16] MEDS: THERAPEUTIC MULTIVITAMINS/MINERALS TAB (*BKC) 1 TABLET PO (09:55)
[2020-11-16] MEDS: TOPIRAMATE 25 MG TABLET 50 MG PO ×2 (09:55→20:56)
[2020-11-16] MEDS: PREGABALIN (*CRX) 75 MG CAPSULE PO ×2 (09:56→21:05)
[2020-11-16] MEDS: CYCLOBENZAPRINE HCL 5 MG TABLET PO ×3 (10:07→20:59)
[2020-11-16] MEDS: PANTOPRAZOLE 40 MG TABLET PO (13:29)
[2020-11-16 14:00] VITALS: BP 142/60; PULSE 83; RESP 18; TEMP 36.3; O2SAT 96
--- NOTE | 2020-11-16 14:21 | WPDNEURORHBP ---
Subjective Date/time seen: 11/16/20 14:21 Interval history: The etiologic diagnosis is left-sided rib fractures 6 through 9 The patient is a 75-year-old female with past medical history of anxiety, bilateral carotid artery stenosis, Alzheimer's disease, CHF, COPD, CAD, lumbar degenerative disc disease, diastolic dysfunction, hypertension, hyperlipidemia, essential tremors, gastric ulcer, GERD, kidney stones, osteoarthritis, peptic ulcerations, peripheral neuropathy, seizure disorder, sick sinus syndrome, CVA, tension headaches, history of DVT who suffered a mechanical fall. Patient was seen in a local hospital and then transferred to [facility] due to her multiple comorbidities. Patient was in ICU. Workup: Left shoulder x-ray revealed a small calcific density projecting above there acromion on the oblique view of the shoulder. Probably due to past injury. CT of the head and spine showed no acute intracranial abnormality. No evidence of acute fracture of the cervical spine. Chest x-ray revealed hazy opacification of the left lung base may relate to atelectasis or small layering left pleural effusion. Bilateral lower extremity Dopplers were negative. Patient was discovered to have a left rib fractures 6 through 9. Hospital course patient required epidural on 11/06/2020 and discontinued on 11/10/2020. Patient resumed her gabapentin and Lyrica which were home meds. Patient is on Flexeril and acetaminophen. Patient was prophylaxed on heparin for DVT prophylaxis. Her Eliquis was initially held until discharge. Patient will not require DVT prophylaxis since Eliquis will be restarting. Therapy was initiated at [facility] patient was transferred on 11/11/2020 11/13/2020 patient complains of left rib pain that she contributes to lifting 1 lb weights to the left upper extremity. Examiner spoke to therapist to provide relief and to perform no further strengthening on the left side. Lidoderm patch will be added to the rib fractures. 11/14/20 Patient had questions regarding OSH CXR. Patient denies SOB. Pain is markedly improved. 11/15/2020 patient denies any pain. Team Conference: Patient is continent of bowel and bladder. She has resumed her anticoagulation medicine Eliquis twice a day. Bruising is noted to the left flank. Patient is at standby to independent with bed mobility transfers and gait using a Rollator. Patient is at setup to standby assistance with ADLs. We are anticipate a discharge on Saturday were patient will be modified independent. Patient will not require any home health care needs PT or OT or DME. Patient is to go home with a Rollator. Patient will be given a home exercise program. Patient lives in assisted living facility and patient may require screening before returning back to her apartment. 11/16/2020 patient complains of ongoing rib pain. Abdominal binder ordered to be worn p.r.n. Patient was started back on her clonidine patch for blood pressure management per Hospitalist. Hospitalist notes appreciated. Review of Systems Review of Systems: Narrative: patient with ongoing complaints of left rib pain Functional Status Ambulation Ability Ability to Ambulate 10 Feet: Independent Ability to Ambulate 50 Feet With 2 Turns: Independent Ability to Ambulate 150 Feet: Independent Ambulation Assistive Devices: Walker, Rollator Transfers Ability Ability to Transfer In/Out of Chair: Independent Exam Narrative: Exam Narrative: Patient is in no acute distress. Head is normocephalic. Glasses are noted. Speech is fluent. Patient wears bilateral hearing aids. Speech is fluent. Heart rate rhythm regular. Lungs are clear. Abdomen is soft nontender Bilateral lower extremity strength are 4-5 right lower extremity strength is 4/5 left is centrally 4- out of 5. Bruising is noted to the lateral flank. Tenderness is noted over ribs. Patient is alert and oriented x4. Endurance is better. Patient is appr
[2020-11-16] MEDS: DONEPEZIL HCL 10 MG TABLET PO (20:58)
[2020-11-16] MEDS: GABAPENTIN 300 MG CAPSULE PO (21:00)
[2020-11-16] MEDS: oxyCODONE HCL (*CRX) 5 MG TAB IR PO (21:05)
[2020-11-16 22:00] VITALS: BP 148/83; PULSE 81; RESP 18; TEMP 36; O2SAT 96
[2020-11-17] MEDS: busPIRone HCL 10 MG TABLET PO ×3 (05:33→20:05)
[2020-11-17] MEDS: dilTIAZem HCL 30 MG TABLET PO ×3 (05:33→20:04)
[2020-11-17] MEDS: DICYCLOMINE HCL 10 MG CAPSULE PO ×4 (05:33→20:04)
[2020-11-17] MEDS: CYCLOBENZAPRINE HCL 5 MG TABLET PO ×3 (05:33→20:04)
[2020-11-17 05:59] VITALS: BP 151/60; PULSE 84; RESP 18; TEMP 36.5; O2SAT 95
[2020-11-17 06:24] LABS: Glucose Point of Care 112 mg/dl (65-105)
[2020-11-17] MEDS: ACETAMINOPHEN 500 MG TABLET 1000 MG PO ×3 (06:35→20:03)
[2020-11-17] MEDS: FERROUS SULFATE DRIED 142 MG TABCR PO (08:20)
[2020-11-17] MEDS: APIXABAN 5 MG TABLET PO ×2 (08:20→20:04)
[2020-11-17] MEDS: ERGOCALCIFEROL 50,000 UNIT CAPSULE 50000 UNITS PO (08:20)
[2020-11-17] MEDS: TOPIRAMATE 25 MG TABLET 50 MG PO ×2 (08:20→20:05)
[2020-11-17] MEDS: LIDOCAINE 5% PATCH 1 PATCH TRANSDERM (08:20)
[2020-11-17] MEDS: FUROSEMIDE 20 MG TABLET PO (08:20)
[2020-11-17] MEDS: SERTRALINE HCL 50 MG TABLET 100 MG PO (08:20)
[2020-11-17] MEDS: ASPIRIN 81 MG CHEWABLE TABLET PO (08:20)
[2020-11-17] MEDS: FAMOTIDINE 10 MG TABLET PO ×2 (08:21→20:05)
[2020-11-17] MEDS: MEMANTINE HCL XR 28 MG CAP PO (08:21)
[2020-11-17] MEDS: SENNA/DOCUSATE SODIUM TABLET 1 TAB PO (08:21)
[2020-11-17] MEDS: THERAPEUTIC MULTIVITAMINS/MINERALS TAB (*BKC) 1 TABLET PO (08:21)
[2020-11-17] MEDS: ATORVASTATIN 40 MG TABLET 80 MG PO (08:21)
[2020-11-17] MEDS: ASCORBIC ACID 500 MG TABLET PO (08:21)
--- NOTE | 2020-11-17 11:27 | WPDNEURORHBP ---
Subjective Date/time seen: 11/17/20 11:27 Interval history: The etiologic diagnosis is left-sided rib fractures 6 through 9 The patient is a 75-year-old female with past medical history of anxiety, bilateral carotid artery stenosis, Alzheimer's disease, CHF, COPD, CAD, lumbar degenerative disc disease, diastolic dysfunction, hypertension, hyperlipidemia, essential tremors, gastric ulcer, GERD, kidney stones, osteoarthritis, peptic ulcerations, peripheral neuropathy, seizure disorder, sick sinus syndrome, CVA, tension headaches, history of DVT who suffered a mechanical fall. Patient was seen in a local hospital and then transferred to [facility] due to her multiple comorbidities. Patient was in ICU. Workup: Left shoulder x-ray revealed a small calcific density projecting above there acromion on the oblique view of the shoulder. Probably due to past injury. CT of the head and spine showed no acute intracranial abnormality. No evidence of acute fracture of the cervical spine. Chest x-ray revealed hazy opacification of the left lung base may relate to atelectasis or small layering left pleural effusion. Bilateral lower extremity Dopplers were negative. Patient was discovered to have a left rib fractures 6 through 9. Hospital course patient required epidural on 11/06/2020 and discontinued on 11/10/2020. Patient resumed her gabapentin and Lyrica which were home meds. Patient is on Flexeril and acetaminophen. Patient was prophylaxed on heparin for DVT prophylaxis. Her Eliquis was initially held until discharge. Patient will not require DVT prophylaxis since Eliquis will be restarting. Therapy was initiated at [facility] patient was transferred on 11/11/2020 11/13/2020 patient complains of left rib pain that she contributes to lifting 1 lb weights to the left upper extremity. Examiner spoke to therapist to provide relief and to perform no further strengthening on the left side. Lidoderm patch will be added to the rib fractures. 11/14/20 Patient had questions regarding OSH CXR. Patient denies SOB. Pain is markedly improved. 11/15/2020 patient denies any pain. Team Conference: Patient is continent of bowel and bladder. She has resumed her anticoagulation medicine Eliquis twice a day. Bruising is noted to the left flank. Patient is at standby to independent with bed mobility transfers and gait using a Rollator. Patient is at setup to standby assistance with ADLs. We are anticipate a discharge on Saturday were patient will be modified independent. Patient will not require any home health care needs PT or OT or DME. Patient is to go home with a Rollator. Patient will be given a home exercise program. Patient lives in assisted living facility and patient may require screening before returning back to her apartment. 11/16/2020 patient complains of ongoing rib pain. Abdominal binder ordered to be worn p.r.n. Patient was started back on her clonidine patch for blood pressure management per Hospitalist. Hospitalist notes appreciated. 11/17/20 Patient seen during showering activity. Patient is independent with transfers and showering. I have reviewed all her home medications which patient has been currently on during her rehab stay. Only new medication is Lidoderm patches which a prescription has been written. abdominal binder has been helpful for her rib pain. Patient is set for discharge tomorrow. Patient will require no home health care PT or OT since she is independent. Recommending follow-up with her family doctor in 1-2 weeks. Patient is to take Tylenol [id number] for pain Review of Systems Constitutional: Constitutional: Reports no additional constitutional complaints ENT: Reports system reviewed and no additional complaints, except as documented Cardiovascular: Cardiovascular: Reports no additional cardiovascular complaints Respiratory: Respiratory: Reports no additional respiratory complaints Musculoskele
[2020-11-17] MEDS: PREGABALIN (*CRX) 75 MG CAPSULE PO ×2 (12:17→20:05)
[2020-11-17] MEDS: oxyCODONE HCL (*CRX) 5 MG TAB IR PO (12:17)
[2020-11-17] MEDS: PANTOPRAZOLE 40 MG TABLET PO (12:19)
[2020-11-17 14:00] VITALS: BP 132/42; PULSE 80; RESP 14; TEMP 36.4; O2SAT 100
[2020-11-17] MEDS: GABAPENTIN 300 MG CAPSULE PO (20:04)
[2020-11-17] MEDS: DONEPEZIL HCL 10 MG TABLET PO (20:05)
[2020-11-17 22:00] VITALS: BP 142/56; PULSE 73; RESP 18; TEMP 36.2; O2SAT 97
[2020-11-18] MEDS: ACETAMINOPHEN 500 MG TABLET 1000 MG PO ×2 (01:56→09:04)
[2020-11-18] MEDS: dilTIAZem HCL 30 MG TABLET PO (05:37)
[2020-11-18] MEDS: busPIRone HCL 10 MG TABLET PO (05:37)
[2020-11-18] MEDS: CYCLOBENZAPRINE HCL 5 MG TABLET PO (05:37)
[2020-11-18] MEDS: DICYCLOMINE HCL 10 MG CAPSULE PO (05:37)
[2020-11-18 06:00] VITALS: BP 149/52; PULSE 69; RESP 18; TEMP 36.3; O2SAT 96
[2020-11-18 06:13] LABS: Glucose Point of Care 105 mg/dl (65-105)
[2020-11-18] MEDS: FERROUS SULFATE DRIED 142 MG TABCR PO (08:59)
[2020-11-18] MEDS: FAMOTIDINE 10 MG TABLET PO (08:59)
[2020-11-18] MEDS: SERTRALINE HCL 50 MG TABLET 100 MG PO (08:59)
[2020-11-18] MEDS: LIDOCAINE 5% PATCH 1 PATCH TRANSDERM (08:59)
[2020-11-18] MEDS: TOPIRAMATE 25 MG TABLET 50 MG PO (09:00)
[2020-11-18] MEDS: APIXABAN 5 MG TABLET PO (09:00)
[2020-11-18] MEDS: THERAPEUTIC MULTIVITAMINS/MINERALS TAB (*BKC) 1 TABLET PO (09:00)
[2020-11-18] MEDS: ASCORBIC ACID 500 MG TABLET PO (09:00)
[2020-11-18] MEDS: ATORVASTATIN 40 MG TABLET 80 MG PO (09:00)
[2020-11-18] MEDS: ASPIRIN 81 MG CHEWABLE TABLET PO (09:00)
[2020-11-18] MEDS: FUROSEMIDE 20 MG TABLET PO (09:00)
[2020-11-18] MEDS: PREGABALIN (*CRX) 75 MG CAPSULE PO (09:00)
[2020-11-18] MEDS: oxyCODONE HCL (*CRX) 5 MG TAB IR PO (09:01)
[2020-11-18] MEDS: SENNA/DOCUSATE SODIUM TABLET 1 TAB PO (09:01)
[2020-11-18] MEDS: MEMANTINE HCL XR 28 MG CAP PO (10:04)
--- NOTE | 2020-11-18 11:48 | PM.DS ---
DS: Admitting Diagnosis Admitting Diagnosis Admitting Diagnosis: Fall with left rib fractures 6 through 9 with medically complicated patient DS: Discharge Diagnosis Discharge Diagnosis (1) Left rib fracture: Code(s): S22.32XA - Fracture of one rib, left side, initial encounter for closed fracture Status: Acute Assessment and Plan: 1000 mg at acetaminophen will be given before a.m. and p.m. therapies, Flexeril 5 mg p.o. HS will be increased to t.i.d. which is her home dose . Patient will be discharged on oxycodone 2.5 mg q 12 hours # 5 pills given . No refill. (2) Pacemaker: Code(s): Z95.0 - Presence of cardiac pacemaker Status: Acute (3) Seizure disorder: Code(s): G40.909 - Epilepsy, unspecified, not intractable, without status epilepticus Status: Acute Assessment and Plan: Topamax 50 mg Q 12 (4) Peripheral neuropathy: Code(s): G62.9 - Polyneuropathy, unspecified Status: Acute Assessment and Plan: Neurontin 300 mg at bedtime. Lyrica 75 mg q.12 (5) Osteoarthritis: Code(s): M19.90 - Unspecified osteoarthritis, unspecified site Status: Acute (6) GERD (gastroesophageal reflux disease): Code(s): K21.9 - Gastro-esophageal reflux disease without esophagitis Status: Acute Assessment and Plan: Protonix 40 mg daily and 10 mg q.12 Pepcid (7) Essential tremor: Code(s): G25.0 - Essential tremor Status: Acute (8) Hyperlipidemia: Code(s): E78.5 - Hyperlipidemia, unspecified Status: Acute (9) Diastolic dysfunction: Code(s): I51.89 - Other ill-defined heart diseases Status: Acute (10) Hypertension: Code(s): I10 - Essential (primary) hypertension Status: Acute Assessment and Plan: Cardizem. clonidine patch weekly (11) Lumbar degenerative disc disease: Code(s): M51.36 - Other intervertebral disc degeneration, lumbar region Status: Acute (12) CHF (congestive heart failure): Code(s): I50.9 - Heart failure, unspecified Status: Acute (13) Alzheimers disease: Code(s): G30.9 - Alzheimer's disease, unspecified; F02.80 - Dementia in other diseases classified elsewhere without behavioral disturbance Status: Acute Assessment and Plan: patient is on Namenda 28 mg daily and Aricept (14) Carotid artery stenosis: Code(s): I65.29 - Occlusion and stenosis of unspecified carotid artery Status: Acute (15) COPD (chronic obstructive pulmonary disease): Code(s): J44.9 - Chronic obstructive pulmonary disease, unspecified Status: Acute (16) Irritable bowel syndrome: Code(s): K58.9 - Irritable bowel syndrome without diarrhea Status: Acute Assessment and Plan: Bentyl (17) Depression: Code(s): F32.9 - Major depressive disorder, single episode, unspecified Status: Acute Assessment and Plan: Zoloft (18) Anxiety: Code(s): F41.9 - Anxiety disorder, unspecified Status: Acute Assessment and Plan: Buspar DS: Summary Hospital Course Hospital Course: The etiologic diagnosis is left-sided rib fractures 6 through 9 The patient is a 75-year-old female with past medical history of anxiety, bilateral carotid artery stenosis, Alzheimer's disease, CHF, COPD, CAD, lumbar degenerative disc disease, diastolic dysfunction, hypertension, hyperlipidemia, essential tremors, gastric ulcer, GERD, kidney stones, osteoarthritis, peptic ulcerations, peripheral neuropathy, seizure disorder, sick sinus syndrome, CVA, tension headaches, history of DVT who suffered a mechanical fall. Patient was seen in a local hospital and then transferred to [facility] due to her multiple comorbidities. Patient was in ICU. Workup: Left shoulder x-ray revealed a small calcific density projecting above there acromion on the oblique view of the shoulder. Probably due to past injury. C
--- NOTE | 2020-11-18 15:48 | PCOTNOTE ---
Please disregard documentation completed on 11/12 and 11/13 from Occupational therapy that is listed as an acute treatment. Therapist made an error and documented treatment under acute treatment instead of TRC treatment.
== END 2020-11-18 10:50 | disposition home or self-care (01) | DRG 561 ==
PROVIDERS: Admitting Provider Physical Medicine & Rehabilitation; PCP Internal Medicine; Visit Provider Physical Medicine & Rehabilitation
DX: S22.42XD Multiple fractures of ribs, left side, subsequent encounter for fracture with routine healing (principal); W19.XXXD Unspecified fall, subsequent encounter; I65.23 Occlusion and stenosis of bilateral carotid arteries; G30.9 Alzheimer's disease, unspecified; E78.5 Hyperlipidemia, unspecified; F02.80 Dementia in other diseases classified elsewhere, unspecified severity, without behavioral disturbance, psychotic disturbance, mood disturbance, and anxiety; F41.8 Other specified anxiety disorders; G40.909 Epilepsy, unspecified, not intractable, without status epilepticus; G62.9 Polyneuropathy, unspecified; I11.0 Hypertensive heart disease with heart failure; I50.9 Heart failure, unspecified; I49.5 Sick sinus syndrome; I25.10 Atherosclerotic heart disease of native coronary artery without angina pectoris; J44.9 Chronic obstructive pulmonary disease, unspecified; K21.9 Gastro-esophageal reflux disease without esophagitis; R25.1 Tremor, unspecified; Z86.73 Personal history of transient ischemic attack (TIA), and cerebral infarction without residual deficits; Z86.718 Personal history of other venous thrombosis and embolism; Z95.0 Presence of cardiac pacemaker; Z96.651 Presence of right artificial knee joint
CPT/HCPCS: 36415; 80053; 82948; 85025; 97110; 97116; 97162; 97165; 97530; 97535; A9270